=== PATIENT | female | born 1965 | race Caucasian/White ===

== ENCOUNTER 2023-06-27 10:17 | Day surgery (SDC) | payer OTHER ==
[~2023-06-27] VITALS: Ht 162.6 cm; Wt 70.3 kg
[2023-06-27] MEDS: NS 1,000 ML IV ONE (06:00)
[~2023-06-27 10:17] MED LIST: ATOR1TAB21 PO; AUGM875T27 PO; BIOT10009 PO; FERR325T82 PO; IRON65TA2 PO; OMEG10002 PO; OXYC1TAB23 PO; POTA99CA2 PO; RED1TAB. PO; TURM500C PO; TYLE325T5 PO; VITA100018 PO; VITA100054 PO; VITA100067 PO; VITATAB73 PO; ZINC30TA2 PO
[2023-06-27 12:45] VITALS: BP 116/76; O2SAT 98
== END 2023-06-27 12:55 | disposition home or self-care (01) ==
LOC: M OPP 10:17
PROVIDERS: ATTEND Internal Medicine Gastroenterology
DX: Z12.11 Encounter for screening for malignant neoplasm of colon (principal); K64.8 Other hemorrhoids; Q43.8 Other specified congenital malformations of intestine; K64.4 Residual hemorrhoidal skin tags; Z86.010 Personal history of colon polyps; Z90.49 Acquired absence of other specified parts of digestive tract

== ENCOUNTER → 2024-04-26 | Outpatient (CLI) | payer OTHER | LOC: M WHC 16:09 | PROVIDERS: ATTEND Nurse Practitioner Family | DX: Z12.31 Encounter for screening mammogram for malignant neoplasm of breast (principal) ==